=== PATIENT | male | born 1950 | race Caucasian/White ===

== ENCOUNTER 2023-12-13 17:00 | Inpatient (IN) | payer OTHER ==
--- NOTE | 2023-12-13 17:59 | RAD REPORT ---
EXAMINATION: ONE VIEW CHEST XR CLINICAL INDICATION: Male, 73 years old.,DYSPNEA TECHNIQUE: Frontal chest projection is submitted. Examination is limited by patient positioning and t echnique. COMPARISON: No prior exam. FINDINGS: The lungs are well inflated. Right IJ dialysis catheter in place. Mild central and bibasilar intersti tial prominence. No pneumothorax or sizable effusion. The heart is upper limit of normal in size. Mediastinal contours are unremarkable. IMPRESSION: Interstitial prominence as above, which may reflect mild congestion/edema.
[2023-12-13] MEDS ORDERED: ACETAMINOPHEN 325 MG TABLET ONE (18:40)
[2023-12-13 19:14] LABS: Absolute Basophils 0.1 K/uL (0-0.5); Absolute Eosinophils 0.4 K/uL (0-0.5); Absolute Lymphocytes (CBC) 1.3 K/uL (0.7-4.9); Absolute Monocytes 0.7 K/uL (0.1-1.3); Absolute Neutrophil 8.4 K/uL (1.8-8.0); Basophils % 1.3 % (0-1.3); Eosinophils % 3.4 % (0-4.4); Hematocrit 34.8 % (39.6-49.0); Hemoglobin 11.4 g/dL (13.6-17.9); Lymphocytes % 12.3 % (15.3-44.8); MCH 33.8 pg (27.0-35.0); MCHC 32.6 g/dL (32.0-36.0); MCV 103.5 fL (80-100); MPV 10.4 fL (7.6-11.3); Monocytes % 6.3 % (3.3-12.3); Neutrophils % 76.7 % (41.7-73.7); Platelets 151 thou/uL (152-406); RBC Red Blood Cell Count 3.36 M/uL (4.33-5.43); Red Cell Distribution Width 14.9 % (12.1-15.2)
[2023-12-13 19:16] LABS: PT Prothrombin Time 12.3 SECONDS (9.4-12.5); PTT, Activated Partial Thromb 36.1 SECONDS (24.3-36.9); Protime INR 1.1
[2023-12-13 19:41] LABS: Albumin 3.4 g/dL (3.4-5.0); Albumin/Globulin Ratio 0.9 (1.1-1.8); Alkaline Phosphatase 65 U/L (45-117); Anion Gap 19.9 mEq/L (5.0-15.0); BUN Blood Urea Nitrogen 117 mg/dL (7-18); Bicarbonate 17 mEq/L (21-32); Bilirubin Total 0.4 mg/dL (0.2-1.0); Glomerular Filtration Rate 3 ml/min (=/>90); Glucose Level 108 mg/dL (74-106); Magnesium 2.1 mg/dL (1.6-2.4); Potassium 8.9 mEq/L (3.5-5.1); Protein, Total 7.4 g/dL (6.4-8.2); Sodium Level 138 mEq/L (136-145)
[2023-12-13 19:42] LABS: ALT/SGPT < 14 U/L (16-61); AST/SGOT < 10 U/L (15-37); Bilirubin Direct < 0.2 mg/dL (0-0.2); Bilirubin Indirect, Calculated 0.2 mg/dL (0.2-0.8)
[2023-12-13 19:45] LABS: Troponin High Sensitivity 294.4 pg/mL (<58.9)
[2023-12-13] MEDS ORDERED: INSULIN REGULAR (HUMAN) 100 UNIT/ML ONE (19:52)
[2023-12-13] MEDS ORDERED: ALBUTEROL 2.5 MG/3 ML NEB SOL ONE (19:54)
[2023-12-13] MEDS ORDERED: SODIUM BICARB 50 MEQ/50ML VIAL ONE (19:55)
[2023-12-13] MEDS ORDERED: D50W 25 GM/50 ML SYRINGE IV ONE (19:56)
[2023-12-13] MEDS ORDERED: CALCIUM GLUCONATE 1 GM IVPB 1 GM/50 ML BAG IV ONE (19:56)
[2023-12-13] MEDS ORDERED: D5W 1,000 ML IV ONE (19:57)
[2023-12-13] MEDS ORDERED: Calcium Chloride 10% INJ SYR IV ONE (20:08)
[2023-12-13] MEDS: SODIUM BICARB 50 MEQ/50ML VIAL ONE (20:18)
[2023-12-13] MEDS ORDERED: FUROSEMIDE 100 MG/10 ML VIAL IV ONE (20:29)
[2023-12-13] MEDS ORDERED: HYDRALAZINE HCL 20 MG/ML VIAL ONE (20:29)
[2023-12-13] MEDS ORDERED: ONDANSETRON 4 MG/2 ML VIAL IV PRN (21:15)
--- NOTE | 2023-12-13 21:28 | P.HP ---
Certification for Inpatient Patient admitted to: Inpatient With expected LOS: >2 Midnights Practitioner: I am a practitioner with admitting privileges, knowledge of patient current condition, hospital course, and medical plan of care. Services: Services provided to patient in accordance with Admission requirements found in Title 42 Section 412.3 of the Code of Federal Regulations Patient History Date of Service: 12/13/23 Reason for admission: Shortness of breath History of Present Illness: Patient is a 73-year-old male with a past medical history of ESRD on hemodialysis Monday. He presented to the ER via EMS for evaluation of acute shortness of breath. Patient has missed his last dialysis on Monday. He is complaining of difficulty breathing and lower extremity edema. Patient usually dialyzes in [facility] and states that he missed his last dialysis as he was having frequent loose stools on Monday. Workup in the ER was significant for severe hyperkalemia with a potassium of 8.9. He also has elevated troponin at 294. His chest x-ray revealed pulmonary congestion. Nephrology has been consulted for emergent hemodialysis. Allergies No Known Allergies Allergy (Unverified 12/13/23 20:54) Physical Examination - Physical Exam General: Acute distress HEENT: Atraumatic, Normocephalic Respiratory: Diminished Cardiovascular: Other (Bilateral nonpitting. Sternotomy scar) Neurological: Normal speech - Studies Laboratory Data (last 24 hrs) 12/13/23 12/13/23 12/13/23 19:00 19:00 19:00 WBC 11.00 H Hgb 11.4 L Hct 34.8 L Plt Count 151 L PT 12.3 INR 1.10 APTT 36.1 Sodium 138 Potassium 8.9 H* BUN 117 H Creatinine 13.50 H Glucose 108 H Magnesium 2.1 Total Bilirubin 0.4 AST < 10 L ALT < 14 L Alkaline Phosphatase 65 Assessment and Plan - Problems (Diagnosis) (1) ESRD on hemodialysis Current Visit: Yes Status: Acute (2) NSTEMI (non-ST elevated myocardial infarction) Current Visit: Yes Status: Acute - Plan Assessment This is a 73-year-old male who is being admitted after presented with acutely worsening shortness of breath. Patient has been noncompliant with his hemodialysis. He has been found to have severe renal insufficiency with a BUN of 75, creatinine 13. He also has hyperkalemia. Also has elevated troponin. Chest x-ray with evidence of pulmonary congestion. Acute hypoxemic respiratory failure Severe hyperkalemia ESRD and noncompliance with hemodialysis Metabolic acidosis Pulmonary edema Elevated troponin, NSTEMI Plan: Will admit to ICU Emergent hemodialysis Repeat BMP tomorrow Cardiology consulted for elevated troponin, possibly NSTEMI Supplemental oxygen for pulmonary edema Volume management with hemodialysis. Will consider BiPAP if symptoms are uncontrolled Heparin for DVT prophylaxis PPI for GI prophylaxis Patient is full code Will obtain a 2D echo - Advance Directives Does patient have a Living Will: No Does patient have a Durable POA for Healthcare: No
[2023-12-13] MEDS ORDERED: SODIUM CHLORIDE 0.9% 10ML INJ IV PRN (21:30)
--- NOTE | 2023-12-13 23:06 | ER ---
Nurse's Notes [facility] Name: Fredis Singleton Age: 73 yrs Sex: Male : 1950 Arrival Date: 12/13/2023 Time: 17:00 Bed 7 Private MD: Diagnosis: Hyperkalemia;Noncompliance with dialysis, acute dyspnea, pulmonary edema, widening of QRS, end-stage renal disease on hemodialysis, acute hyperkalemia, generalized weakness Presentation: 12/12 17:01 Chief complaint: EMS states: Pt was picked up from the [facility] in , jb4 reporting SOB since today. Pt reports missing his dialysis on Monday. Lungs are CTA, 20g to the RAC initiated. Coronavirus screen: At this time, the client does not indicate any symptoms associated with coronavirus-19. Ebola Screen: No symptoms or risks identified at this time. Initial Sepsis Screen: Does the patient meet any 2 criteria? No. Patient's initial sepsis screen is negative. Does the patient have a suspected source of infection? No. Patient's initial sepsis screen is negative. Risk Assessment: Do you want to hurt yourself or someone else? Patient reports no desire to harm self or others. Onset of symptoms was December 13, 2023. Transition of care: patient was not received from another setting of care. 17:01 Method Of Arrival: EMS: [facility] jb4 17:01 Acuity: JARVIS 2 jb4 Triage Assessment: 17:05 General: Appears distressed, obese, unkempt, Behavior is cooperative, appropriate for bp age, anxious. Pain: Denies pain. EENT: No deficits noted. Neuro: No deficits noted. Cardiovascular: Rhythm is sinus rhythm. Respiratory: Reports shortness of breath at rest. GI: No signs and/or symptoms were reported involving the gastrointestinal system. : No signs and/or symptoms were reported regarding the genitourinary system. Derm: No deficits noted. Musculoskeletal: No deficits noted. Historical: - Allergies: 17:08 No Known Allergies; jb4 - PMHx: 17:08 CHF; Dialysis T,TH,Sat; jb4 - Immunization history:: Adult Immunizations unknown. - Infectious Disease History:: Denies. - Social history:: Smoking status: Patient denies any tobacco usage or history of. - Family history:: not pertinent. Screenin:17 [facility] ED Fall Risk Assessment (Adult) History of falling in the last 3 months, bp including since admission No falls in past 3 months (0 pts) Confusion or Disorientation No (0 pts) Intoxicated or Sedated No (0 pts) Impaired Gait No (0 pts) Mobility Assist Device Used Yes (1 pt) Altered Elimination No (0 pt) Score/Fall Risk Level 0 - 2 = Low Risk Oriented to surroundings. Abuse screen: Denies threats or abuse. Denies injuries from another. Nutritional screening: No deficits noted. Tuberculosis screening: No symptoms or risk factors identified. Assessment: 17:05 General: Appears distressed, obese, unkempt, Behavior is cooperative, appropriate for bp age, anxious. Pain: Complains of pain in GENERALIZED. 18:14 Reassessment: PHLEBOTOMY CONTACTED FOR SECOND RECOLLECT. bp 20:52 Cardiovascular: Rhythm is sinus rhythm. al5 20:52 Neuro: Level of Consciousness is awake, alert, obeys commands, Oriented to person, al5 place, time, situation. Respiratory: Airway is patent Respiratory effort is even, unlabored, Respiratory pattern is regular, symmetrical. GI: Abdomen is round non-distended. : dialysis port right side chest. EENT: No signs and/or symptoms were reported regarding the EENT system. Derm: Skin is intact, Skin is normal. Musculoskeletal: Reports weakness in generalized. 20:52 General: Appears uncomfortable, Behavior is cooperative, agitated. Neuro: Level of al5 Consciousness is awake, alert, obeys commands, Oriented to person, place, time, situation. Cardiovascular: Capillary refill < 3 seconds Patient's skin is warm and dry. Rhythm is wide QRS. Respiratory: Reports shortness of breath Airway is patent Respiratory effort is even, labored, Respiratory pattern is symmetrical, tachypnea. GI: Abdomen is round non-distended. : dialysis port right side chest. EENT: No signs and/or symptoms were reported regarding the EENT system. Derm: Skin is intact, Skin is normal. Musculoskeletal: Reports weakness in generalized with improvement from earlier. 21:39 Reassessment: transporting patient up to dialysis with [facility] cad technician. bringing up 6 al5 vials of heparin 1000 units/mL for dialysis nurse for catheter care, order in [facility]. Vital Signs: 17:10 BP 170 / 94; Pulse 80; Resp 16; Pulse Ox 97% on 3 lpm NC; Weight 115.67 kg (R); Height jb4 5 ft. 10 in. ; 18:19 BP 156 / 125; Pulse 83; Resp 20; Pulse Ox 99% ; bp 19:46 BP 193 / 103; Pulse 102; Resp 20; Pulse Ox 99% on 4 lpm NC; al5 19:58 BP 193 / 125; Pulse 116; Resp 26; Pulse Ox 96% on 4 lpm NC; al5 20:00 BP 187 / 110; Pulse 112; Resp 22; Pulse Ox 94% on 4 lpm NC; al5 20:15 BP 157 / 111; Pulse 111; Resp 20; Pulse Ox 99% on 4 lpm NC; al5 20:17 BP 161 / 101; Pulse 101; Resp 27; Pulse Ox 99% on 4 lpm NC; al5 20:30 BP 157 / 89; Pulse 98; Resp 26; Pulse Ox 98% on 4 lpm NC; al5 20:45 BP 142 / 96; Pulse 100; Resp 22; Pulse Ox 100% on 4 lpm NC; al5 20:59 Temp 98(O); al5 21:00 BP 144 / 93; Pulse 100; Resp 21; Pulse Ox 96% on 4 lpm NC; al5 21:15 BP 146 / 81; Pulse 94; Resp 20; Pulse Ox 97% on 4 lpm NC; al5 21:30 BP 154 / 88; Pulse 89; Resp 20; Pulse Ox 97% on 4 lpm NC; al5 17:10 Body Mass Index 36.59 (115.67 kg, 177.8 cm) jb4 ED Course: 17:01 Patient arrived in ED. jb4 17:07 [facility] Davidson [facility] kb 17:07 Brianna Hyde MD is Attending Physician. kb 17:08 Triage completed. jb4 17:08 Arm band placed on right wrist. jb4 17:15 Initial lab(s) drawn, by ED staff, sent to lab. EKG done, by ED staff, reviewed by bp Zenobia CLARK. Inserted saline lock: 20 gauge in right forearm, using aseptic technique. Blood collected. Flushed with 10 mL NS. 17:19 Venessa Love, RN is Primary Nurse. ph 17:25 Marlo Monteiro, RN is Primary Nurse. bp 17:45 Lab(s) recollected, by ED staff, sent to lab. bp 17:46 Chest Single View XRAY In Process Unspecified. EDMS 18:00 Lab(s) recollected, by ED staff, sent to lab. bp 18:17 Patient has correct armband on for positive identification. bp 19:47 Notified Nurse Practitioner and/or Physician Account Consultant of a critical lab result(s), k al5 8.9, creatinine 13.5. 19:47 No provider procedures requiring assistance completed. al5 19:51 EKG done, by ED staff, reviewed by Brianna Hyde MD. al5 20:03 Attending Physician role handed off by Brianna Hyde MD sp4 20:03 Elieser Carpio MD is Attending Physician. sp4 20:52 EKG done, by ED staff, reviewed by Elieser Carpio MD. al5 23:04 Prince Diego MD is Hospitalizing Provider. sp4 Administered Medications: 18:46 Drug: Acetaminophen PO 650 mg PO once Route: PO; ph 20:15 Follow up: Response: No adverse reaction; Pain is decreased al5 20:09 Drug: Albuterol Inhalation 10 mg Inhalation once Route: Inhalation; al5 20:58 Follow up: Response: No adverse reaction; Cardiac rhythm changed al5 20:10 Drug: D50W IVP 50 ml IVP once; (1 amp) Route: IVP; Site: right antecubital; al5 20:57 Follow up: Response: No adverse reaction; Cardiac rhythm changed al5 20:11 Drug: Calcium Gluconate IVPB 1 grams IVPB once over 60 mins; (mix in NS 100 mL) Route: al5 IVPB; Infused Over: 60 mins; Site: right antecubital; 21:28 Follow up: Response: No adverse reaction; Cardiac rhythm changed; IV Status: Completed al5 infusion; IV Intake: 100ml 20:12 Drug: Calcium Chloride IVP 1 grams IVP once Route: IVP; Site: right antecubital; al5 20:58 Follow up: Response: No adverse reaction; Cardiac rhythm changed al5 20:15 Drug: Sodium Bicarbonate IVP 1 amp IVP once; (50 mL); equals 50 mEq {Note: verbal order vc1 for [address] P.} Route: IVP; Site: right antecubital; 20:57 Follow up: Response: No adverse reaction; Cardiac rhythm changed al5 20:16 Drug: Insulin Regular Human IVP 10 units IVP once {Co-Signature: cp4 (harris Rodriguez).} Route: IVP; Site: right antecubital; 20:57 Follow up: Response: No adverse reaction; Cardiac rhythm changed al5 20:17 Drug: Sodium Bicarbonate IVP 2 amp IVP once; (50 mL); equals 50 mEq Route: IVP; Site: vc1 right antecubital; 21:28 Follow up: Response: No adverse reaction; Cardiac rhythm changed al5 20:36 Drug: D5W IV 1000 ml IV at 250 ml/hr continuous; add 3 amps (150ml) sodium bicarb to vc1 D5W Route: IV; Rate: 250 ml/hr; Site: right antecubital; 21:28 Follow up: IV Status: Infusion continued upon admission al5 20:58 Drug: Furosemide IVP 100 mg IVP once; give over 2 minutes Route: IVP; Site: right al5 antecubital; 21:28 Follow up: Response: No adverse reaction al5 21:07 Not Given (Hemodynamic Parameters; patient bp 142/96): [id number] mg IVP once al5 Medication: 19:47 VIS not applicable for this client. al5 Intake: 21:28 IV: 100ml; Total: 100ml. al5 Outcome: 23:05 Decision to Hospitalize by Provider. sp4 23:24 Patient left the ED. vc1 Signatures: Dispatcher [employer] EDHI Zenobia Davidson FNP-C FNP-Venessa Miranda, RN RN Bora Corrales, RN RN Marlo Bird RN RN Saritha Conn RN RN vc1 Elieser Carpio MD MD sp4 Doreen Mirza RN RN alLary Zayas cp4 Corrections: (The following items were deleted from the chart) 20:17 20:15 Sodium Bicarbonate IVP 1 amp IVP in right antecubital; verbal order for [address] Baires al5 21:21 20:59 Cardiovascular: Rhythm is sinus rhythm al5 al5 21:24 21:21 General: Appears uncomfortable, Behavior is cooperative, agitated, al5 al5 :24 21:21 Neuro: Level of Consciousness is awake, alert, obeys commands, Oriented to al5 person, place, time, situation, al5 : 21:21 Cardiovascular: Capillary refill < 3 seconds Patient's skin is warm and dry. al5 Rhythm is wide QRS al5 : 21:21 Respiratory: Reports shortness of breath Airway is patent Respiratory effort is al5 even, labored, Respiratory pattern is symmetrical, tachypnea al5 :24 21:21 GI: Abdomen is round non-distended, al5 al5 : 21:21 : dialysis port right side chest al5 al5 24 21:21 EENT: No signs and/or symptoms were reported regarding the EENT system. al5 al5 21:21 Derm: Skin is intact, Skin is normal, al5 al5 :24 21:21 Musculoskeletal: Reports weakness in generalized with improvement from earlier al5al5
--- NOTE | 2023-12-13 23:06 | EDPHYS ---
Physician Documentation [facility] Name: Fredis Singleton Age: 73 yrs Sex: Male : 1950 Arrival Date: 12/13/2023 Time: 17:00 Bed 7 Private MD: ED Physician Elieser Carpio HPI: 12/12 20:09 This 73 yrs old Male presents to ER via EMS with complaints of Shortness Of sp4 Breath. 20:18 73-year-old male history of end-stage renal disease on hemodialysis every Monday sp4 Monday , who is originally from [place]. Patient states he is a of [employer] he is completely disabled secondary to agent orange. He has history of diabetes hypertension congestive heart failure. . 20:34 Patient presents with EMS with moderate to severe dyspnea and generalized weakness. sp4 Patient states he missed his dialysis on Monday. . Historical: - Allergies: 17:08 No Known Allergies; jb4 - PMHx: 17:08 CHF; Dialysis T,,Mon; jb4 - Immunization history:: Adult Immunizations unknown. - Infectious Disease History:: Denies. - Social history:: Smoking status: Patient denies any tobacco usage or history of. - Family history:: not pertinent. ROS: 20:34 Constitutional: Negative for fever, chills, and weight loss, positive for generalized sp4 weakness, positive for shortness of breath. 20:34 All other systems are negative, Exam: 20:30 Constitutional: This is a well developed, well nourished patient who is awake, alert, gb1 and appears acutely in distress. Head/Face: Normocephalic, atraumatic. Eyes: Pupils equal round and reactive to light, extra-ocular motions intact. Lids and lashes normal. Conjunctiva and sclera are non-icteric and not injected. Cornea within normal limits. Periorbital areas with no swelling, redness, or edema. ENT: Nares patent. No nasal discharge, no septal abnormalities noted. Tympanic membranes are normal and external auditory canals are clear. Oropharynx with no redness, swelling, or masses, exudates, or evidence of obstruction, uvula midline. Mucous membranes moist. Neck: Trachea midline, no thyromegaly or masses palpated, and no cervical lymphadenopathy. Supple, full range of motion without nuchal rigidity, or vertebral point tenderness. No Meningismus. Respiratory: Lungs have equal breath sounds bilaterally, clear to auscultation and percussion. No rales, rhonchi or wheezes noted. No increased work of breathing, no retractions or nasal flaring. Abdomen/GI: Soft, non-tender, with normal bowel sounds. No distension or tympany. No guarding or rebound. No evidence of tenderness throughout. Back: No spinal tenderness. No costovertebral tenderness. Full range of motion. Skin: Warm, dry with normal turgor. Normal color with no rashes, no lesions, and no evidence of cellulitis. MS/ Extremity: Pulses equal, no cyanosis. Neurovascular intact. Full, normal range of motion. 20:34 ECG was reviewed by the Attending Physician. There is sinus rhythm with white QRS sp4 rhythm, left axis deviation EKG at 1950 sinus rhythm rate 99. 20:56 ECG was reviewed by the Attending Physician. Repeat EKG 2051 NSR at 100 QRS has sp4 narrowed Vital Signs: 17:10 BP 170 / 94; Pulse 80; Resp 16; Pulse Ox 97% on 3 lpm NC; Weight 115.67 kg (R); Height jb4 5 ft. 10 in. ; 18:19 BP 156 / 125; Pulse 83; Resp 20; Pulse Ox 99% ; bp 19:46 BP 193 / 103; Pulse 102; Resp 20; Pulse Ox 99% on 4 lpm NC; al5 19:58 BP 193 / 125; Pulse 116; Resp 26; Pulse Ox 96% on 4 lpm NC; al5 20:00 BP 187 / 110; Pulse 112; Resp 22; Pulse Ox 94% on 4 lpm NC; al5 20:15 BP 157 / 111; Pulse 111; Resp 20; Pulse Ox 99% on 4 lpm NC; al5 20:17 BP 161 / 101; Pulse 101; Resp 27; Pulse Ox 99% on 4 lpm NC; al5 20:30 BP 157 / 89; Pulse 98; Resp 26; Pulse Ox 98% on 4 lpm NC; al5 20:45 BP 142 / 96; Pulse 100; Resp 22; Pulse Ox 100% on 4 lpm NC; al5 20:59 Temp 98(O); al5 21:00 BP 144 / 93; Pulse 100; Resp 21; Pulse Ox 96% on 4 lpm NC; al5 21:15 BP 146 / 81; Pulse 94; Resp 20; Pulse Ox 97% on 4 lpm NC; al5 21:30 BP 154 / 88; Pulse 89; Resp 20; Pulse Ox 97% on 4 lpm NC; al5 17:10 Body Mass Index 36.59 (115.67 kg, 177.8 cm) jb4 MDM: 17:07 Medical Screening Exam initiated 19:56 Data reviewed: vital signs, nurses notes. Management of patient was discussed with the kb following: Dr Bolivar horne, awaiting callback. Management of patient was discussed with the following: Dr Hyde. 20:28 ED course: Ramandeep nurse petitioner alerted me when the patient's potassium came back gb1 at 8.9. We immediately started treatment for hyperkalemia to include sodium bicarb, calcium gluconate, IV insulin as well as D50 glucose as well as a IV bicarb infusion. The patient appeared clinically unstable with an EKG concerning for widened QRS. I placed pads and the patient and the patient was monitored as there was a concern that he would go into a ventricular fibrillation rhythm. The patient missed dialysis for an extended period of time which is likely the etiology of the hyperkalemia. Emergent hemodialysis was arranged by the on-call fire protection designer and the patient's care was clinically transferred to Dr. Isabella CARTWRIGHT. 20:47 Differential diagnosis: asthma, Bronchitis CHF exacerbation, Chronic Obstructive sp4 Pulmonary Disease pneumonia, Pneumothorax Psychogenic. 20:49 ED course: EXAMINATION: ONE VIEW CHEST XR CLINICAL INDICATION: Male, 73 years sp4 old.,DYSPNEA TECHNIQUE: Frontal chest projection is submitted. Examination is limited by patient positioning and technique. COMPARISON: No prior exam. FINDINGS: The lungs are well inflated. Right IJ dialysis catheter in place. Mild central and bibasilar interstitial prominence. No pneumothorax or sizable effusion. The heart is upper limit of normal in size. Mediastinal contours are unremarkable. IMPRESSION: Interstitial prominence as above, which may reflect mild congestion/edema. . 20:56 ED course: Patient at this time goes to Dialysis at the Hospital dialysis unit . Stable sp4 hemodynamically . 12/12 17:11 Order name: Basic Metabolic Panel; Complete Time: 19:48 12/12 17:11 Order name: CBC with Diff; Complete Time: 19:19 kb 12/12 17:11 Order name: Hepatic Function; Complete Time: 19:48 kb 12/12 17:11 Order name: Magnesium; Complete Time: 19:48 kb 12/12 17:11 Order name: Protime (+inr); Complete Time: 19:19 kb 12/12 17:11 Order name: Ptt, Activated; Complete Time: 19:19 kb 12/12 17:11 Order name: Troponin High Sensitivity; Complete Time: 19:48 kb 12/12 17:11 Order name: Urinalysis w/ reflexes kb 12/12 21:20 Order name: Lactate w/ 2H reflex if indic. EDMS 12/12 21:20 Order name: Magnesium EDMS 12/12 21:20 Order name: Phosphorus EDMS 12/12 21:20 Order name: Urinalysis w/ reflexes EDMS 12/12 21:20 Order name: Basic Metabolic Panel EDMS 12/12 21:20 Order name: Basic Metabolic Panel EDMS 12/12 21:20 Order name: Basic Metabolic Panel EDMS 12/12 21:20 Order name: Basic Metabolic Panel EDMS 12/12 21:20 Order name: CBC with Automated Diff EDMS 12/12 21:20 Order name: CBC with Automated Diff EDMS 12/12 21:24 Order name: Troponin High Sensitivity EDMS 12/12 21:24 Order name: Troponin High Sensitivity EDMS 12/12 21:24 Order name: Troponin High Sensitivity EDMS 12/12 21:24 Order name: Troponin High Sensitivity EDMS 12/12 17:11 Order name: Chest Single View XRAY; Complete Time: 18:06 kb 12/12 21:31 Order name: Echo with Doppler EDMS 12/12 17:11 Order name: EKG; Complete Time: 17:12 kb 12/12 20:37 Order name: EKG; Complete Time: 20:38 sp4 12/12 17:11 Order name: Cardiac monitoring; Complete Time: 17:31 kb 12/12 17:11 Order name: EKG - Nurse/Tech; Complete Time: 17:31 kb 12/12 17:11 Order name: IV Saline Lock; Complete Time: 17:31 kb 12/12 17:11 Order name: Labs collected and sent; Complete Time: 17:31 kb 12/12 17:11 Order name: NPO; Complete Time: 17:31 kb 12/12 17:11 Order name: O2 Per Protocol; Complete Time: 17:31 kb 12/12 17:11 Order name: O2 Sat Monitoring; Complete Time: 17:31 kb 12/12 17:34 Order name: Labs - recollect needed: recollect all tubes; Complete Time: 17:49 bd 12/12 17:55 Order name: Labs - recollect needed: recollect all tubes again; Complete Time: 19:37 bd 12/12 20:36 Order name: EKG - Nurse/Tech; Complete Time: 20:56 vc1 12/12 20:37 Order name: Misc. Order: get a temperature; Complete Time: 20:56 vc1 EC:34 Rate is 99 beats/min. Rhythm is regular, Sinus Rhythm. Left axis deviation noted. OK sp4 interval is normal. QRS interval is prolonged. Clinical impression: LV Strain and LVH. Interpreted by me. Reviewed by me. Administered Medications: 18:46 Drug: Acetaminophen PO 650 mg PO once Route: PO; ph 20:15 Follow up: Response: No adverse reaction; Pain is decreased al5 20:09 Drug: Albuterol Inhalation 10 mg Inhalation once Route: Inhalation; al5 20:58 Follow up: Response: No adverse reaction; Cardiac rhythm changed al5 20:10 Drug: D50W IVP 50 ml IVP once; (1 amp) Route: IVP; Site: right antecubital; al5 20:57 Follow up: Response: No adverse reaction; Cardiac rhythm changed al5 20:11 Drug: Calcium Gluconate IVPB 1 grams IVPB once over 60 mins; (mix in NS 100 mL) Route: al5 IVPB; Infused Over: 60 mins; Site: right antecubital; 21:28 Follow up: Response: No adverse reaction; Cardiac rhythm changed; IV Status: Completed al5 infusion; IV Intake: 100ml 20:12 Drug: Calcium Chloride IVP 1 grams IVP once Route: IVP; Site: right antecubital; al5 20:58 Follow up: Response: No adverse reaction; Cardiac rhythm changed al5 20:15 Drug: Sodium Bicarbonate IVP 1 amp IVP once; (50 mL); equals 50 mEq {Note: verbal order vc1 for [address] P.} Route: IVP; Site: right antecubital; 20:57 Follow up: Response: No adverse reaction; Cardiac rhythm changed al5 20:16 Drug: Insulin Regular Human IVP 10 units IVP once {Co-Signature: cp4 (Michael, harris Barth).} Route: IVP; Site: right antecubital; 20:57 Follow up: Response: No adverse reaction; Cardiac rhythm changed al5 20:17 Drug: Sodium Bicarbonate IVP 2 amp IVP once; (50 mL); equals 50 mEq Route: IVP; Site: vc1 right antecubital; 21:28 Follow up: Response: No adverse reaction; Cardiac rhythm changed al5 20:36 Drug: D5W IV 1000 ml IV at 250 ml/hr continuous; add 3 amps (150ml) sodium bicarb to vc1 D5W Route: IV; Rate: 250 ml/hr; Site: right antecubital; 21:28 Follow up: IV Status: Infusion continued upon admission al5 20:58 Drug: Furosemide IVP 100 mg IVP once; give over 2 minutes Route: IVP; Site: right al5 antecubital; 21:28 Follow up: Response: No adverse reaction al5 21:07 Not Given (Hemodynamic Parameters; patient bp 142/96): [id number] mg IVP once al5 Disposition: 19:50 Critical Care:. gb1 20:28 Critical Care:. I reviewed the patient's care provided by Advanced Practice Provider \T\ gb1 agree w/ the diagnosis \T\ care plan. I personally saw the pt \T\ performed a substantive portion of the visit, incldng all aspects of the (History/Exam/Medical Decision Making). Disposition Summary: 12/13/23 23:05 Hospitalization Ordered Notes: Hospitalization Status: Inpatient Admission sp4 Provider: Prince loree Diego Location: Intensive Care Unit sp4 Condition: Guarded sp4 Problem: new sp4 Symptoms: have improved sp4 Bed/Room Type: Standard sp4 Room Assignment: 4-(12/13/23 23:24) vc Diagnosis - Hyperkalemia sp4 - Noncompliance with dialysis, acute dyspnea, pulmonary edema, widening of QRS, sp4 end-stage renal disease on hemodialysis, acute hyperkalemia, generalized weakness Forms: - Medication Reconciliation Form sp4 - SBAR form sp4 - Leadership Thank You Letter sp4 Critical care time excluding procedures: 19:50 Critical care time: Bedside Care: 60 minutes, Consultation: 30 minutes. Total time: 90 gb1 minutes 20:28 Critical care time: Bedside Care: 75 minutes, Consultation: 20 minutes. Total time: 95 gb1 minutes Signatures: Dispatcher [employer] EDZenobia Chow, EDUARDO SEAM RUBBING MACHINE OPERATOR-Page Alcala Patricia, RN RN Bora Albert, RN RN jb4 Saritha Middleton RN RN vc1 Elieser Carpio MD MD sp4 Brianna Hyde MD MD gb1 Doreen Mirza RN RN al5 Lary Rodriguez cp4 Corrections: (The following items were deleted from the chart) 23:24 23:05 loree vc1
[2023-12-14] MEDS ORDERED: HEPARIN 5000 UNIT/ML 1 ML VIAL SQ SCH (01:00)
[2023-12-14] MEDS: ALBUTEROL 2.5 MG/3 ML NEB SOL NEB SCH (01:00)
[2023-12-14] MEDS: IPRATROPIUM BROM 0.5MG/2.5ML NEB SCH (01:00)
[2023-12-14 01:12] VITALS: BMI 36.6
[2023-12-14 05:08] LABS: Absolute Basophils 0.1 K/uL (0-0.5); Absolute Eosinophils 0.1 K/uL (0-0.5); Absolute Lymphocytes (CBC) 1.3 K/uL (0.7-4.9); Absolute Monocytes 0.6 K/uL (0.1-1.3); Absolute Neutrophil 4.3 K/uL (1.8-8.0); Basophils % 0.8 % (0-1.3); Eosinophils % 2.2 % (0-4.4); Hematocrit 28.3 % (39.6-49.0); Hemoglobin 9.6 g/dL (13.6-17.9); Lymphocytes % 19.8 % (15.3-44.8); MCH 34.6 pg (27.0-35.0); MCV 101.8 fL (80-100); MPV 10.7 fL (7.6-11.3); Monocytes % 9.5 % (3.3-12.3); Neutrophils % 67.7 % (41.7-73.7); Platelets 123 thou/uL (152-406); RBC Red Blood Cell Count 2.79 M/uL (4.33-5.43); Red Cell Distribution Width 14.1 % (12.1-15.2)
[2023-12-14 05:29] LABS: Anion Gap 12.7 mEq/L (5.0-15.0); Magnesium 2.1 mg/dL (1.6-2.4); Phosphorus 7.9 mg/dL (2.5-4.9); Potassium 5.7 mEq/L (3.5-5.1)
[2023-12-14] MEDS: FLU (Fluarix Triv) TS24-25(6MOS UP)/PF 45 MCG/0.5 ML Syringe IM ONE (07:15)
--- NOTE | 2023-12-14 07:22 | P.PN ---
Date of Service: 12/14/23 Subjective: feeling better overall feels strength is starting to come back - was unable to lift legs at home yesterday tolerated dialysis overnight without issues missed dialysis Monday due to frequent diarrhea which has since resolved. denies chest pain does not know all of his meds he takes at home [facility] ROS: 10 point ROS as noted above, otherwise negative Physical Exam: GEN: Alert, NAD HEENT: Normal conjunctiva, sclera anicteric, CV: Regular rate and rhythm, 1+ lower extremity edema Pulm: Nonlabored respirations on 2L NC, diminished bilaterally ABD: soft, nontender, nondistended Neuro: Normal speech, normal affect Problem List: Severe Hyperkalemia with metabolic acidosis Acute hypoxemic respiratory failure secondary to acute on chronic CHF exacerbation ESRD on HD TTS NSTEMI, demand ischemia Hypertension Severe Hyperkalemia with metabolic acidosis Acute hypoxemic respiratory failure secondary to acute on chronic CHF exacerbation ESRD on HD TTS on admission, presents with worsening shortness of breath, lower extremity edema, generalized weakness Missed dialysis this past Monday d/t developing frequent diarrhea and abdominal discomfort; diarrhea had resolved prior to arrival. creatinine 13.5, Potassium 8.9 on admission Nephrology consulted; now s/p emergent HD last night Anticipate another round of dialysis today/tomorrow given calcium gluconate, sodium bicarb in ED Daily labs - improving continue protonix, zofran check UA / follow culture Acute hypoxemic respiratory failure secondary to acute on chronic CHF exacerbati on CXR (12/12): mild central/bibasilar interstitial prominence likely mild edema/congestion given IV Lasix 100mg in ED continue IV bumex 1mg BID - need to confirm home meds; takes bumex, but unsure of dose oxygen supplementation as needed. Wean as tolerated lower extremity edema improving duonebs NSTEMI, demand ischemia denies chest pain trend troponins until peak; 294 -> 333 echo ordered to eval EF / stenosis Cardiology consulted suspect demand ischemia in setting of ESRD Recommends outpatient stress test Hypertension confirm home meds, restart as appropriate patient unsure on home med list VTE: heparin sq Code: Fabrication Department Supervisor Spent Managing Pts Care (In Minutes): 51
[2023-12-14] MEDS: BUMETANIDE 1 MG/4 ML VIAL IV SCH (07:24)
[2023-12-14] MEDS: PANTOPRAZOLE 40 MG INJ IVP SCH (07:25)
[2023-12-14] MEDS ORDERED: PNEUMOCOCCAL VACCINE 0.5 ML IMVAC ONE (08:00)
[2023-12-14 08:26] LABS: Specific Gravity 1.009 (1.005-1.030); Sqamous Epithelial <5 /HPF (None Seen); Urine Bacteria None Seen /HPF (<20); Urine Bilirubin NEGATIVE (Negative); Urine Blood Trace (Negative); Urine Clarity Turbid (Clear); Urine Color Colorless (Yellow); Urine Culture Reflex Order REFLEXED; Urine Glucose 2+ (Negative); Urine Ketones NEGATIVE (Negative); Urine Microscopic Reflex YN ORDER UMIC; Urine Nitrite NEGATIVE (Negative); Urine Protein 3+ (Negative); Urine RBC <5 /HPF (None Seen); Urine Urobilinogen Normal (Normal); Urine pH 7.5 (5.0-7.0)
--- NOTE | 2023-12-14 10:10 | P.CNS ---
Date of Consult: 12/14/23 Reason for Consult: ESRD Requesting Physician: Duong James Chief Complaint: Shortness of breath History of Present Illness: Patient is a 73-year-old male with a past medical history of ESRD on hemodialysis Monday. He presented to the ER via EMS for evaluation of acute shortness of breath. Patient has missed his last dialysis on Monday. He is complaining of difficulty breathing and lower extremity edema. Patient usually dialyzes in [facility] and states that he missed his last dialysis as he was having frequent loose stools on Monday. Workup in the ER was significant for severe hyperkalemia with a potassium of 8.9. He also has elevated troponin at 294. His chest x-ray revealed pulmonary congestion. Nephrology has been consulted for emergent hemodialysis. [id number] 20:09 This 73 yrs old Male presents to ER via EMS with complaints of Shortness Of sp4 Breath. 20:18 73-year-old male history of end-stage renal disease on hemodialysis every Monday sp4 Monday , who is originally from [place]. Patient states he is a of [employer] he is completely disabled secondary to agent orange. He has history of diabetes hypertension congestive heart failure. . 20:34 Patient presents with EMS with moderate to severe dyspnea and generalized weakness. sp4 Patient states he missed his dialysis on Monday. Reports missing one dialysis due to diarrhea. Allergies No Known Allergies Allergy (Unverified 12/13/23 20:54) Home medications list reviewed: Yes - Past Medical/Surgical History Diabetic: Yes -: HTN -: DM -: ESRD (Dr. Jean/ Ankit) -: CHF - Social History Alcohol use: Yes CD- Drugs: No Caffeine use: Yes Review of Systems 10-point ROS is otherwise unremarkable General: Weakness Respiratory: SOB with Excertion Cardiovascular: Edema Gastrointestinal: Diarrhea Physical Examination Temp Pulse Resp BP Pulse Ox 98.6 F 92 H 20 133/68 100 12/14/23 07:00 12/14/23 09:00 12/14/23 09:00 12/14/23 09:00 12/14/23 09:00 General: In no apparent distress, Oriented x3, Cooperative HEENT: Atraumatic Neck: Supple Respiratory: Clear to auscultation bilaterally, Normal air movement Cardiovascular: Regular rate/rhythm, Edema Gastrointestinal: Soft and benign, Non-distended Musculoskeletal: No clubbing, No contractures Integumentary: No rashes, No cyanosis Neurological: Normal speech Laboratory Data (last 24 hrs) 12/13/23 12/13/23 12/13/23 19:00 19:00 19:00 WBC 11.00 H Hgb 11.4 L Hct 34.8 L Plt Count 151 L PT 12.3 INR 1.10 APTT 36.1 Sodium 138 Potassium 8.9 H* BUN 117 H Creatinine 13.50 H Glucose 108 H Magnesium 2.1 Total Bilirubin 0.4 AST < 10 L ALT < 14 L Alkaline Phosphatase 65 Imagings Data: [id number] EXAMINATION: ONE VIEW CHEST XR CLINICAL INDICATION: Male, 73 years old.,DYSPNEA TECHNIQUE: Frontal chest projection is submitted. Examination is limited by patient positioning and technique. COMPARISON: No prior exam. FINDINGS: The lungs are well inflated. Right IJ dialysis catheter in place. Mild central and bibasilar interstitial prominence. No pneumothorax or sizable effusion. The heart is upper limit of normal in size. Mediastinal contours are unremarkable. IMPRESSION: Interstitial prominence as above, which may reflect mild congestion/edema. Conclusions/Impression: ESRD on HD TTS -Acute HD as ordered Hyperkalemia Acute Metabolic Acidosis -Acute HD as ordered HTN with CKD/ CHF -Hold antihypertensives at this time Diastolic CHF, A/C Acute respiratory failure with hypoxia -HD with UF today Anemia in CKD -Retacrit qHD CKD MBD Secondary Hyperparathyroidism Hyperphosphatemia -Start Renvela -Start Ergo Hospitalist and ER notes reviewed Thank you kindly for the consultation Patient care 35min
[2023-12-14] MEDS ORDERED: NA CHLORIDE 0.9% 1,000 ML IV PRN (11:01)
[2023-12-14] MEDS ORDERED: MANNITOL 25% 12.5 GM/50 ML VIAL IV PRN (11:01)
--- NOTE | 2023-12-14 11:08 | P.CNS ---
Date of Consult: 12/14/23 Chief Complaint: Shortness of breath History of Present Illness: Patient with PMH of ESRD on HD, presented with worsening SOB, swelling due to missing dialysis, denies chest pain, no palpitations, no syncope. Allergies No Known Allergies Allergy (Unverified 12/13/23 20:54) Home medications list reviewed: Yes - Past Medical/Surgical History Diabetic: Yes -: HTN -: DM -: ESRD (Dr. Jean/ Ankit) - Social History Alcohol use: Yes CD- Drugs: No Caffeine use: Yes Review of Systems 10-point ROS is otherwise unremarkable Physical Examination Temp Pulse Resp BP Pulse Ox 98.6 F 78 18 121/63 95 12/14/23 07:00 12/14/23 10:00 12/14/23 10:00 12/14/23 10:00 12/14/23 10:00 General: Alert, In no apparent distress HEENT: Atraumatic, PERRLA, Mucous membr. moist/pink, EOMI, Sclerae nonicteric Neck: Supple, 2+ carotid pulse no bruit, No LAD, Without JVD or thyroid abnormality Respiratory: Clear to auscultation bilaterally, Normal air movement Cardiovascular: Regular rate/rhythm, Normal S1 S2 Gastrointestinal: Normal bowel sounds, No tenderness Musculoskeletal: No tenderness Integumentary: No rashes Neurological: Normal gait, Normal speech, Normal tone, Normal affect Lymphatics: No axilla or inguinal lymphadenopathy Laboratory Data (last 24 hrs) 12/13/23 12/13/23 12/13/23 19:00 19:00 19:00 WBC 11.00 H Hgb 11.4 L Hct 34.8 L Plt Count 151 L PT 12.3 INR 1.10 APTT 36.1 Sodium 138 Potassium 8.9 H* BUN 117 H Creatinine 13.50 H Glucose 108 H Magnesium 2.1 Total Bilirubin 0.4 AST < 10 L ALT < 14 L Alkaline Phosphatase 65 - Problems (1) NSTEMI (non-ST elevated myocardial infarction) Current Visit: Yes Status: Acute Plan: Troponin mild elevated with no delta changes, patient is chest pain free, most likely type 2 OK from ESRD. ASA 81 mg daily Lipitor 40 mg daily outpatient follow up for stress test.
[2023-12-14] MEDS ORDERED: ALBUMIN HUMAN 25% 50 ML IV SCH (12:00)
[2023-12-14] MEDS: PNEUMOCOCCAL VACCINE 0.5 ML IMVAC ONE (13:05)
--- NOTE | 2023-12-14 13:32 | ECHO ---
HEIGHT: 5 ft 10 in WEIGHT: 255 lb 11.2 oz DATE OF STUDY: 12/14/[address]: Prince Mayi Diego MD 2-DIMENSIONAL: YES M.MODE: YES DOPPLER: YES COLOR FLOW: YES TDS: NO PORTABLE: YES DEFINITY: NO BUBBLE STUDY: NO DIAGNOSIS: ELEVATED TROPONIN CARDIAC HISTORY: CATHERIZATION: SURGERY: PROSTHETIC VALVE: PACEMAKER: MEASUREMENTS (cm) DIASTOLIC (NORMALS) SYSTOLIC (NORMALS) IVSd 1.2 (0.6-1.2) LA Diam 4.4 (1.9-4.0) LVEF 60-65% LVIDd 6.0 (3.5-5.7) LVIDs 4.2 (2.0-3.5) %FS 31% LVPWd 1.3 (0.6-1.2) Ao Diam 3.5 (2.0-3.7) 2 DIMENSIONAL ASSESSMENT: RIGHT ATRIUM: NORMAL LEFT ATRIUM: NORMAL RIGHT VENTRICLE: NORMAL LEFT VENTRICLE: MILD LEFT VENTRICULAR HYPERTROPHY TRICUSPID VALVE: MILD TRICUPSID REGURGTATION MITRAL VALVE: NORMAL PULMONIC VALVE: NORMAL AORTIC VALVE: MILD AORTIC STENOSIS PERICARDIAL EFFUSION: NONE AORTIC ROOT: NORMAL LEFT VENTRICULAR WALL MOTION: NORMAL. DOPPLER/COLOR FLOW: NORMAL. COMMENTS: [*] 1. NORMAL LEFT VENTRICULAR SYSTOLIC FUNCTION. LEFT VENTRICULAR EJECTION FRACTION 60-65%. NORMAL WALL MOTION. 2. NORMAL DIASTOLIC FUNCTION. 3. MILD AORTIC STENOSIS. 4. NORMAL FILLING PRESSURES. TECHNOLOGIST: KERI SEYMOUR
[2023-12-14] MEDS ORDERED: FLU (Fluarix Triv) TS24-25(6MOS UP)/PF 45 MCG/0.5 ML Syringe IM ONE (14:00)
[2023-12-14 17:56] LABS: Hepatitis B Surface Ab - Quant 3.18 mIU/mL (<8.0); Hepatitis B surface AG Interp. Nonreactive (Nonreactive)
[2023-12-14 17:57] LABS: HBsAG Nonreactive Report Report
[2023-12-14] MEDS: EPOETIN ALFA 10,000 UNIT/ML VIAL IV SCH (17:58)
[2023-12-15] MEDS: MELATONIN 3 MG TABLET PO ONE (00:43)
[2023-12-15 05:50] LABS: Anion Gap 11.2 mEq/L (5.0-15.0); Magnesium 2.1 mg/dL (1.6-2.4); Potassium 5.2 mEq/L (3.5-5.1)
--- NOTE | 2023-12-15 09:42 | P.PN ---
Date of Service: 12/15/23 Subjective: feeling close to his normal self denies any new / worsening problems tolerated dialysis without issues ROS: 10 point ROS as noted above, otherwise negative Physical Exam: GEN: Alert, NAD HEENT: Normal conjunctiva, sclera anicteric, CV: Regular rate and rhythm, trace lower extremity edema Pulm: Nonlabored respirations on room air, diminished bilaterally ABD: soft, nontender, nondistended Neuro: Normal speech, normal affect Problem List: Severe Hyperkalemia with metabolic acidosis Acute hypoxemic respiratory failure secondary to acute on chronic CHF exacerbation ESRD on HD TTS NSTEMI, demand ischemia Hypertension Severe Hyperkalemia with metabolic acidosis Acute hypoxemic respiratory failure secondary to acute on chronic CHF exacerbation ESRD on HD TTS on admission, presents with worsening shortness of breath, lower extremity edema, generalized weakness Missed dialysis this past Monday d/t developing frequent diarrhea and abdominal discomfort; diarrhea had resolved prior to arrival. CXR (12/12): mild central/bibasilar interstitial prominence likely mild edema/congestion creatinine 13.5, Potassium 8.9 on admission Nephrology consulted; now s/p emergent HD x2 given calcium gluconate, sodium bicarb, IV Lasix 100mg in ED IV bumex deescalated to PO bumex 1mg BID 12/14 coreg 3.125 BID added 12/14 Daily labs - improving duonebs NSTEMI, demand ischemia denies chest pain Troponins mildly elevated but trended flat. Peaked at 333 Echo (12/12): 60-65% EF, Mild aortic stenosis, mild TR Cardiology consulted suspect demand ischemia in setting of ESRD Recommends outpatient stress test Hypertension confirm home meds, restart as appropriate patient unsure on home med list VTE: heparin sq Code: Chief Diversity Officer Spent Managing Pts Care (In Minutes): 51
[2023-12-15] MEDS: BUMETANIDE 1 MG TABLET PO SCH (10:32)
[2023-12-15 10:52] VITALS: O2SAT 94
[2023-12-15] MEDS ORDERED: SODIUM ZIRCONIUM CYCLOSILICATE 10 GM/PKT PO ONE (11:45)
[2023-12-15 13:25] VITALS: BP 138/82; TEMP 98
[2023-12-15] MEDS ORDERED: carvediloL 3.125 MG TAB PO SCH (18:00)
[2023-12-15] MEDS ORDERED: carvediloL 6.25 MG TAB PO SCH (18:00)
--- NOTE | 2023-12-16 06:46 | P.DS ---
Admission Date: 12/13/23 Discharge Date: 12/15/23 Disposition: ROUTINE DISCHARGE Reason for Admission: Shortness of breath Consultations: Cardiology - Dr. Nazario Nephrology - Dr. Pham Brief History of Present Illness: 73yo M, PMH: ESRD on HD TTS, Hypertension, chronic CHF He presented to the ER via EMS for evaluation of acute shortness of breath. Patient has missed his last dialysis on Monday. He is complaining of difficul ty breathing and lower extremity edema. Patient usually dialyzes in [facility] and states that he missed his last dialysis as he was having frequent loose stools on Monday. Workup in the ER was significant for severe hyperkalemia with a potassium of 8.9. He also has elevated troponin at 294. His chest x-ray revealed pulmonary congestion. Nephrology has been consulted for emergent hemodialysis. Hospital Course: Problem List: Severe Hyperkalemia with metabolic acidosis, improving Acute hypoxemic respiratory failure secondary to acute on chronic CHF exacerbation ESRD on HD TTS NSTEMI, demand ischemia Hypertension Physician discharge instructions: Patient presented with worsening shortness of breath, lower extremity edema, generalized weakness. Labwork on admission significant severe hyperkalemia (8.9), metabolic acidosis (17), SAL (creatinine 13.5) secondary to recently missed dialysis session. Patient has history of ESRD on HD TTS and reports that he recently missed dialysis this past Monday due to developing frequent diarrhea, abdominal discomfort. Diarrhea resolved prior to admission. Nephrology was consulted for assistance with emergent dialysis. Patient tolerated emergent dialysis, with improvement of his potassium, and underwent a 2nd dialysis the next day. He had quick turnaround feeling significantly better close to his normal self after dialysis. Chest xray with findings consistent with mild pulmonary edema/congestion. He was started IV bumex while hospitalized - patient reported taking bumex at home but was unable to recall dose and unable to obtain updated med rec. IV bumex was deescalated to oral bumex and patient continued to improve. Patient was feeling better back to his normal self, breathing more comfortably on room air, strength improving, and deemed stable for discharge. He reported taking several "heart meds" that have been unchanged for quite some time, and has never had this issue with his potassium before, and typically doesn't miss dialysis. Discussed difficulty providing best recommendations regarding his home medications in this situation without know them, but if everything has typically been stable, and this is this issue developed after missing dialysis, he should be ok to continue his home medications as previously prescribed. During his hospitalization, troponins were noted to be mildly elevated but trended flat (peaked at 333). Patient asymptomatic, denied any chest pain. Suspect elevated troponins secondary to demand ischemia in setting of ESRD. Echocardiogram with 60-65%EF, mild aortic stenosis, mild tricuspid regurgitation. Cardiology was consulted and recommended following up in office in the near future for outpatient stress test. No evidence to warrant further inpatient cardiac work up. Continue home beta adenike /statin. Medications: continue home meds, no change. Follow up: PCP 3-5 days Nephrology within 1 week Cardiology 1-2 weeks Please call to schedule / confirm appointments advised to make a list of his home meds and carry copy in his wallet and to take one on follow up appointments. Physical Exam: GEN: Alert, NAD HEENT: Normal conjunctiva, sclera anicteric, CV: Regular rate and rhythm, trace lower extremity edema Pulm: Nonlabored respirations on room air, clear bilaterally ABD: soft, nontender, nondistended Neuro: Normal speech, normal affect Vital Signs/Physical Exam: Temp Pulse Resp BP Pulse Ox 98.0 F 96 H 16 138/82 93 12/15/23 13:00 12/15/23 13:00 12/15/23 13:00 12/15/23 13:00 12/15/23 13:00 Laboratory Data at Discharge: WBC 6.40 thou/uL (4.3-10.9) 12/14/23 04:47 Hgb 9.6 g/dL (13.6-17.9) L D 12/14/23 04:47 Hct 28.3 % (39.6-49.0) L 12/14/23 04:47 Plt Count 123 thou/uL (152-406) L 12/14/23 04:47 PT 12.3 SECONDS (9.4-12.5) 12/13/23 19:00 INR 1.10 12/13/23 19:00 APTT 36.1 SECONDS (24.3-36.9) 12/13/23 19:00 Sodium 136 mEq/L (136-145) D 12/15/23 05:07 Potassium 5.2 mEq/L (3.5-5.1) H 12/15/23 05:07 BUN 46 mg/dL (7-18) H 12/15/23 05:07 Creatinine 7.73 mg/dL (0.70-1.30) H 12/15/23 05:07 Glucose 109 mg/dL (74-106) H 12/15/23 05:07 Phosphorus 7.9 mg/dL (2.5-4.9) H 12/14/23 04:47 Magnesium 2.1 mg/dL (1.6-2.4) 12/15/23 05:07 Total Bilirubin 0.4 mg/dL (0.2-1.0) 12/13/23 19:00 AST < 10 U/L (15-37) L 12/13/23 19:00 ALT < 14 U/L (16-61) L 12/13/23 19:00 Alkaline Phosphatase 65 U/L (45-117) 12/13/23 19:00 Physician Discharge Instructions: Physician discharge instructions: Patient presented with worsening shortness of breath, lower extremity edema, generalized weakness. Labwork on admission significant severe hyperkalemia (8.9), metabolic acidosis (17), SAL (creatinine 13.5) secondary to recently missed dialysis session. Patient has history of ESRD on HD TTS and reports that he recently missed dialysis this past Monday due to developing frequent diarrhea, abdominal discomfort. Diarrhea resolved prior to admission. Nephrology was consulted for assistance with emergent dialysis. Patient tolerated emergent dialysis, with improvement of his potassium, and underwent a 2nd dialysis the next day. He had quick turnaround feeling significantly better close to his normal self after dialysis. Chest xray with findings consistent with mild pulmonary edema/congestion. He was started IV bumex while hospitalized - patient reported taking bumex at home but was unable to recall dose and unable to obtain updated med rec. IV bumex was deescalated to oral bumex and patient continued to improve. Patient was feeling better back to his normal self, breathing more comfortably on room air, strength improving, and deemed stable for discharge. He reported taking several "heart meds" that have been unchanged for quite some time, and has never had this issue with his potassium before, and typically doesn't miss dialysis. Discussed difficulty providing best recommendations regarding his home medications in this situation without know them, but if everything has typically been stable, and this is this issue developed after missing dialysis, he should be ok to continue his home medications as previously prescribed. During his hospitalization, troponins were noted to be mildly elevated but trended flat (peaked at 333). Patient asymptomatic, denied any chest pain. Suspect elevated troponins secondary to demand ischemia in setting of ESRD. Echocardiogram with 60-65%EF, mild aortic stenosis, mild tricuspid regurgitation. Cardiology was consulted and recommended following up in office in the near future for outpatient stress test. No evidence to warrant further inpatient cardiac work up. Continue home beta adenike /statin. Medications: continue home meds, no change. Follow up: PCP 3-5 days Nephrology within 1 week Cardiology 1-2 weeks Please call to schedule / confirm appointments advised to make a list of his home meds and carry copy in his wallet and to take one on follow up appointments. Followup: Dionte Pham DO [ACTIVE - CAN ADMIT] - 1-2 Weeks NONE,NONE [Primary Care Provider] - Time spent managing pt's care (in minutes): 45
--- NOTE | 2023-12-18 12:10 | EKG ---
Test Date: 2023-12-13 Test Time: 19:51:34 [employer] Program Chair: CANDIS MEASUREMENT RESULTS: Intervals: Rate: 99 NM: QRSD: 186 QT: 506 QTc: 649 [place]: P: NM: QRS: -59 T: 89 INTERPRETIVE STATEMENTS: Wide QRS rhythm Left axis deviation Left bundle branch block Abnormal ECG No previous ECG available for comparison Electronically Signed On 12-18-23 12:08:06 BENCH MACHINE OPERATOR by Maurilio Nazario
--- NOTE | 2023-12-18 12:10 | EKG ---
Test Date: 2023-12-13 Test Time: 20:52:27 Reconciliation Machine Operator: CANDIS MEASUREMENT RESULTS: Intervals: Rate: 100 FL: 178 QRSD: 104 QT: 368 QTc: 474 [place]: P: -7 FL: 178 QRS: -10 T: 43 INTERPRETIVE STATEMENTS: Normal sinus rhythm Cannot rule out Anterior infarct, age undetermined Abnormal ECG Compared to ECG 12/13/2023 19:51:34 Myocardial infarct finding now present Uncertain supraventricular rhythm no longer present Left-axis deviation no longer present Left bundle-branch block no longer present Electronically Signed On 12-18-23 12:07:21 AUTOMOTIVE SALES SPECIALIST by Maurilio Nazario
== END 2023-12-15 15:30 | disposition home or self-care (01) | DRG 280 ==
LOC: ER 17:00 → ERHOLD 21:15 → 3RD-ICU 23:13 → 2ND 12-14 18:12
PROVIDERS: ADMIT Internal Medicine; ATTEND Hospitalist
PROC: 5A1D70Z Performance of Urinary Filtration, Intermittent, Less than 6 Hours Per Day (ICD-10-PCS; principal; 2023-12-13)
PROC: 4A033R1 Measurement of Arterial Saturation, Peripheral, Percutaneous Approach (ICD-10-PCS; 2023-12-13)
DX: I13.2 Hypertensive heart and chronic kidney disease with heart failure and with stage 5 chronic kidney disease, or end stage renal disease (principal); J96.01 Acute respiratory failure with hypoxia; I21.A1 Myocardial infarction type 2; N18.6 End stage renal disease; E87.21 Acute metabolic acidosis; N25.81 Secondary hyperparathyroidism of renal origin; N17.9 Acute kidney failure, unspecified; I50.9 Heart failure, unspecified; D63.1 Anemia in chronic kidney disease; E87.5 Hyperkalemia; E83.39 Other disorders of phosphorus metabolism; I08.2 Rheumatic disorders of both aortic and tricuspid valves; Z23 Encounter for immunization; Z99.2 Dependence on renal dialysis; Z91.158 Patient's noncompliance with renal dialysis for other reason
CPT/HCPCS: 36415; 71045; 80048; 80076; 81001; 82947; 83605; 83735; 84100; 84484; 85025; 85610; 85730; 86706; 87086; 87088; 87340; 90471; 90732; 90935; 93005; 93306; 94640; 96365; 96375; 99285; J0360; J0612; J1644; J2470; J7613; J7644; Q4081